=== PATIENT | male | born 1975 | race Caucasian/White ===

== ENCOUNTER 2024-12-02 18:26 | Outpatient (REF) | payer MEDICAID, SELFPAY ==
--- NOTE | ~2024-12-02 | MR_ITS ---
CLINICAL HISTORY: RT BICEP DEFORMITY, R O RUPTURE MR right humerus without contrast Comparison: None Findings: Mild glenohumeral subcortical edema with cystic change, degenerative. Otherwise normal marrow signal. Large proximal humeral osteophytosis, degenerative. There is a small amount of fluid in the subcoracoid bursa. The long head of the biceps tendon is intact. There is increased fluid within the tendon sheath. The short head of the biceps tendon is intact. The distal tendon of the biceps brachii is increased in size and signal with heterogeneity. Its insertion upon radius is not included in the field of view and there is artifact in this region which limits evaluation on the T2 weighted images. There is mild adjacent muscular edema and atrophy. The musculature is otherwise normal in signal and bulk. The tendons are otherwise intact. Unremarkable limited evaluation of the vasculature. Unremarkable nerves. Normal subcutaneous fat. Impression: Partially visualized abnormal distal tendon of the biceps brachii which is increased in size and signal likely indicates partial tear. Mild associated myositis and atrophy. The long and short heads of the biceps tendon are intact. There is increased fluid within the tendon sheath of the long head of the biceps tendon indicating tenosynovitis. This document has been electronically signed by: Aida Hayes MD on 12/05/2024 16:25:20
== END 2024-12-02 18:27 | disposition home or self-care (01) ==
LOC: HO.MRI 18:26
PROVIDERS: PCP Internal Medicine; Visit Provider Internal Medicine
DX: S46.211A Strain of muscle, fascia and tendon of other parts of biceps, right arm, initial encounter (principal)
CPT/HCPCS: 73218

== ENCOUNTER → 2024-12-02 18:40 | Outpatient (BNV) | payer MEDICAID, SELFPAY | PROVIDERS: PCP Internal Medicine; Visit Provider Radiology Diagnostic Radiology | DX: M21.921 Unspecified acquired deformity of right upper arm (principal) | CPT/HCPCS: 73218 ==

== ENCOUNTER 2024-12-23 09:27 | Outpatient (AMB) | payer MEDICAID, SELFPAY ==
--- NOTE | 2024-12-23 09:37 | MHC.OFFVIS ---
Vital Signs 12/23/24 09:39 Height 5 ft 9 in Weight 200 lb BMI 29.5 Intake Visit Reasons: New Patient - Possible Right Bicep Tendon Rupture Intake Note: Tripp Mcbride 49 yr old right hand dominant male presents today with his Berta, for his right bicep tendon rupture. States about 1-2 months ago while lifting his dog, he felt a pop. The following day he woke up and noticed bruising. Denies pain, has no bruising, numbness, tingling or locking of any finger. Allergies No Known Allergies Allergy (Verified 12/23/24 09:40) [facility] Social History (Updated 12/23/24 @ 09:40 by CHARLES Lobato) Current occupational status: employed Current occupation: rt hand / welding Physical Exam Vital Signs: BMI result Body Mass Index 29.5 Assessment & Plan Assessment & Plan (1) Traumatic rupture of right distal biceps tendon: Code(s): S46.211A - Strain of muscle, fascia and tendon of other parts of biceps, right arm, initial encounter Category: Medical Plan History of Present Illness The patient is a 49-year-old male presenting with a biceps tendon rupture. The injury was sustained about one month prior when the patient lifted a heavy dog, resulting in a sudden pop sensation and bruising of the affected area, consistent with a tendon rupture. Initial evaluation and MRI at another facility confirmed a full-thickness tear, though complete MRI assessment by the said facility was inconclusive. Despite the injury, the patient reports no pain and maintains a full range of motion. He notes only occasional fatigue during use of the affected arm. Given the incident occurred one to two months ago, these findings suggest a chronic stage of the injury. Review of Systems - Musculoskeletal: Reports occasional fatigue in the affected arm; Denies pain, swelling, or limitation of range of motion. Systems reviewed and are negative except as per HPI and below Physical Exam - Musculoskeletal- Examination reveals a negative hook test with minor deformity and biceps tendon bulge; slight retraction palpable. Results - Imaging: MRI at referral center showing full-thickness biceps tendon tear with incomplete assessment. Procedure Plan The patient with a biceps tendon rupture, identified one month prior, is not a candidate for surgery due to chronic retraction. As the patient is asymptomatic and physically unrestricted, conservative management including physical therapy is advised to address mild fatigue. Surgical intervention or further imaging will only be reconsidered if new symptoms arise. Close monitoring of the condition and prompt reporting of any changes are emphasized to the patient. Patient was informed and verbally consented to the use of an ambient scribe for clinic note documentation during this visit. Discussion Notes I discussed with the patient the nature of his biceps tendon rupture and the management options available. Given the injury occurred over a month ago, surgery is not feasible due to the chronicity and tendon retraction. The benefits of conservative treatment, including physical therapy, were explained, emphasizing strengthening the area and managing fatigue without invasive procedures. The risks of surgical attempts at this stage were outlined, including the difficulty and potential stiffness post-repair, with reassurance provided given the lack of overt symptoms and functional limitations. We agreed on physical therapy as an effective interim approach, with plans to revisit the necessity for further imaging or surgical consultation if symptoms escalate. Patient Instructions - Follow up with physical therapy as recommended to strengthen the affected area. - Monitor arm for changes in symptoms; report increased pain or functional limitations immediately. - Note fatigue during activities; modify activities as necessary to prevent exacerbation. - Maintain regular activity within current comfort levels. - Contact the office if you have questions or need further assistance. Orders: Orders PT Evaluation and Treatment Today S46.211A - Strain of muscle, fascia and tendon of other parts of biceps, right arm, initial encounter Coding Level of Care Code New Pt Level 3 (39011) Diagnoses Traumatic rupture of right distal biceps tendon S46.211A
[2024-12-23 09:39] VITALS: BMI 29.5
--- OUTSIDE RECORDS SUMMARY | 2024-12-23 09:48 | XMS_ITS | Clinical Summary ---
Author Organization [facility] Address [address] [place] [address] Care Team Providers Care Outpatient Coder Name Role Phone Salvatore Alvarez MD Primary Care Provide r Allergies No known active allergies Medications No known medications Active Problems Problem Noted Date Diagnosed Date Rupture of right distal biceps tendon 11/19/2024 Assessment & Plan (11/19/2024 12:12 PM EDT): Hx and physical exam indicative of this Plan: MRI right arm Ortho referral Pain of left heel 11/19/2024 Assessment & Plan (11/19/2024 12:19 PM EDT): Symptoms and exam indicative of plantar fasciitis Plan: Heel pads, stretching exercises, NSAIDS PRN, Plain films , Podiatry eval Encounters Date Type Department Care Team Description 12/07/2024 Results Follow-Up [facility] [address] [place] [phone] Staci Vernon RN MR Humerus w/o Contrast Right 11/28/2024 Orders Only [facility] [address] [place] [phone] Salvatore Alvarez MD Rupture of right distal biceps tendon, initial encounter (Primary Dx); Pain of left heel 11/22/2024 Telephone [place] [facility] [address] [place] [address] Salvatore Alvarez MD 11/21/2024 Population Health Risk Score [facility] ([facility]) Department [address] [phone] Provider, Population Health Generic 11/19/2024 11:40 AM EDT Office Visit [facility] [address] [place] [address] Salvatore Alvarez MD Rupture of right distal biceps tendon, initial encounter (Primary Dx); Pain of left heel 11/19/2024 Telephone [facility] [address] [place] [phone] Eileen Fajardo, RN Durable Medical Equipment from Last 3 Months Social History Tobacco Use Types Packs/Day Years Used Date Smoking Tobacco: Never Passive Smoke Exposure: Never Smokeless Tobacco: Never Tobacco Cessation:Counseling Given: Not Answered Sex and Gender Information Value Date Recorded Sex Assigned at Male 11/19/2024 10:56 AM EDT Legal Sex Male 3:11 PM EDT Gender Identity Male 11/19/2024 10:56 AM EDT Sexual Orientation Straight 11/19/2024 10 :56 AM EDT Last Filed Vital Signs Vital Sign Reading Time Taken Comments Blood Pressure 134/87 11/19/2024 11:40 AM EDT Pulse 80 11/19/2024 11:40 AM EDT Temperature 36.8 ??C (98.2 ??F) 11/19/2024 11:40 AM E DT Respiratory Rate 20 11/19/2024 11:40 AM EDT Oxygen Saturation 98% 11/19/2024 11:40 AM EDT Inhaled Oxygen Concentration - - Weight 91.4 kg (201 lb 9.6 oz) 11/19/2024 11:40 AM EDT Height 175.3 cm (5' 9 ) 11/19/2024 11:40 AM EDT Body Mass Index 29.77 11/19/2024 11:40 AM EDT Plan of Treatment Upcoming Encounters Date Type Department Care Team (Late st Contact Info) Description 01/31/2025 1:30 PM EDT Office Visit [facility] [address] [place] [phone] Salvatore Alvarez MD [address] [place] [address] Health Maintenance Due Date Last Done Comments CT Colonography 1977 Colonoscopy 1977 Colorectal Cancer Screening 1977 Depression Screening 1977 FIT DNA/Cologuard 1977 FIT 1977 FOBT 1977 HIV Screening 1977 Lipid Panel 1977 SDOH Screening 1977 Sigmoidoscopy 1977 Disability Screening 1977 Alcohol/Substance Use Screening 1989 Family Planning (PISQ) 1992 Hepatitis C Screening 1995 DTaP/Tdap/Td Vaccines (1 - Tdap) 1996 Hepatitis B Vaccines (1 of 3 - 19+ 3-dose series) 1996 COVID-19 Vaccine (1 - 2023-2 5 season) 2024 Influenza Vaccine (#1) 2024 Tobacco Screening 11/19/2025 11/19/2024 Zoster Vaccines (1 of 2) 2027 RSV Patients and Pa tients Aged 60 years or older (1 - 1-dose 75+ series) 2052 HIB Vaccines Aged Out No longer eligi ble based on patient's age to complete this topic HPV Vaccines Aged Out No longer eligi ble based on patient's age to complete this topic Hepatitis A Vaccines Aged Out No long er eligible based on patient's age to complete this topic IPV Vaccines Aged Out No longer eligi ble based on patient's age to complete this topic Meningococcal B Vaccine Aged Out No l onger eligible based on patient's age to complete this topic Meningococcal Vaccine Aged Out No nahed harrison eligible based on patient's age to complete this topic Pneumococcal Vaccine: Pediat rics (0 to 5 Years) and At-Risk Patients (6 to 49) Years) Aged Out No longer elig ible based on patient's age to complete this topic RSV under 20 months Aged Out No longe r eligible based on patient's age to complete this topic Rotavirus Vaccines Aged Out No longer eligible based on patient's age to complete this topic Procedures Procedure Name Priority Date/Time Associated Diagnosis Comments MR HUMERUS WO CONTRAST RIGHT Routine 12/05/2024 4:25 PM EDT from Last 3 Months Results * MR Humerus w/o Contrast Right (12/05/2024 4:25 PM EDT) Anatomical Region Laterality Modality Upper Extremities, Humerus Right Magne tic Resonance 12/05/2024 4:25 PM EDT Narrative 12/05/2024 4:26 PM EDT ? [facility] ?[address] ?[place] [address] ? Magnetic Resonance Report ? Signed ? Patient: Virgie Grullon,Leif ?MR#: ?? [id number] ? : 1975 ?Acct:[id number] ? Age/Sex: 49 / M ?ADM Date: 12/02/24 ? Loc: HO.MRI ? Attending Dr: Salvatore Delatorre MD ? Ordering Physician: Salvatore Delatorre MD ?? Date of Service: 12/02/24 ?? Procedure(s): MR humerus RT wo con ?? Accession Number(s): [id number] ? cc: Salvatore Delatorre MD ? CLINICAL HISTORY: RT BICEP DEFORMITY, R O RUPTURE ? MR right humerus without contrast ? Comparison: None ? Findings: ?? Mild glenohumeral subcortical edema with cystic change, degenerative. ?? Otherwise normal marrow signal. Large proximal humeral osteophytosis, ?? degenerative. ?? There is a small amount of fluid in the subcoracoid bursa. ?? The long head of the biceps tendon is intact. There is increased fluid ?? within the tendon sheath. The short head of the biceps tendon is intact. ?? The distal tendon of the biceps brachii is increased in size and signal ?? with heterogeneity. Its insertion upon radius is not included in the field ?? of view and there is artifact in this region which limits evaluation on ?? the T2 weighted images. There is mild adjacent muscular edema and atrophy. ?? The musculature is otherwise normal in signal and bulk. The tendons are ?? otherwise intact. ?? Unremarkable limited evaluation of the vasculature. Unremarkable nerves. ?? Normal subcutaneous fat. ? Impression: ?? Partially visualized abnormal distal tendon of the biceps brachii which is ?? increased in size and signal likely indicates partial tear. Mild ?? associated myositis and atrophy. The long and short heads of the biceps ?? tendon are intact. There is increased fluid within the tendon sheath of ?? the long head of the biceps tendon indicating tenosynovitis. ? This document has been electronically signed by: Aida Hayes MD ?? on 12/05/2024 16:25:20 ? Dictated By: ?Aida Huggins MD ? Signed By: ?<Electronically signed by Aida Huggins MD in OV> ? 12/05/241625 ? DD/ 24 ? TD/TT: 12/05/241624 ? Drapery Hand: ? Procedure Note Donotuseinterpreter, Image - 12/05/2024 [place] [address] Magnetic Resonance Report Signed Patient: Tripp ArreagaR#: [id number] : 1975Acct:[id number] Age/Sex: 49 / MADM Date: 12/02/24 Loc: HO.MRI Attending Dr: Salvatore Delatorre MD Ordering Physician: Salvatore Delatorre MD Date of Service: 12/02/24 Procedure(s): MR humerus RT wo con Accession Number(s): [id number] cc: Salvatore Delatorre MD CLINICAL HISTORY: RT BICEP DEFORMITY, R O RUPTURE MR right humerus without contrast Comparison: None Findings: Mild glenohumeral subcortical edema with cystic change, degenerative. Otherwise normal marrow signal. Large proximal humeral osteophytosis, degenerative. There is a small amount of fluid in the subcoracoid bursa. The long head of the biceps tendon is intact. There is increased fluid within the tendon sheath. The short head of the biceps tendon is intact. The distal tendon of the biceps brachii is increased in size and signal with heterogeneity. Its insertion upon radius is not included in the field of view and there is artifact in this region which limits evaluation on the T2 weighted images. There is mild adjacent muscular edema and atrophy. The musculature is otherwise normal in signal and bulk. The tendons are otherwise intact. Unremarkable limited evaluation of the vasculature. Unremarkable nerves. Normal subcutaneous fat. Impression: Partially visualized abnormal distal tendon of the biceps brachii which is increased in size and signal likely indicates partial tear. Mild associated myositis and atrophy. The long and short heads of the biceps tendon are intact. There is increased fluid within the tendon sheath of the long head of the biceps tendon indicating tenosynovitis. This document has been electronically signed by: Aida Hayes MD on 12/05/2024 16:25:20 Dictated By: Aida Huggins MD Signed By: <Electronically signed by Aida Huggins MD in OV> 12/05/24 1626 DD/ 162 TD/TT: 12/05/241624 Drapery Hand: Salvatore Hines MD IMG MRI PROCEDURES Fi nal Result from Last 3 Months [facility] [employer] [facility] Care Teams Outpatient Coder Relationship Specialty Start Date End Date Salvatore Alvarez MD [address] [place] [phone] PCP - General Internal Medicine 11/19/24
== END 2024-12-23 10:04 | disposition home or self-care (01) ==
LOC: HO.HOS 09:28
PROVIDERS: PCP Internal Medicine
DX: S46.211A Strain of muscle, fascia and tendon of other parts of biceps, right arm, initial encounter (principal)
CPT/HCPCS: 99203

== ENCOUNTER → 2024-12-23 09:27 | Outpatient (BNVA) | payer MEDICAID, SELFPAY | PROVIDERS: PCP Internal Medicine | DX: S46.211A Strain of muscle, fascia and tendon of other parts of biceps, right arm, initial encounter (principal) | CPT/HCPCS: 99212 ==

== ENCOUNTER → 2025-03-04 09:37 | Outpatient (BNV) | payer MEDICAID, SELFPAY | PROVIDERS: Visit Provider Radiology Diagnostic Radiology | DX: M25.831 Other specified joint disorders, right wrist (principal); S62.632A Displaced fracture of distal phalanx of right middle finger, initial encounter for closed fracture | CPT/HCPCS: 73110; 73130 ==

== ENCOUNTER 2025-03-04 10:12 | Emergency (ER) | payer MEDICAID, SELFPAY ==
--- NOTE | ~2025-03-04 | XR_ITS ---
CLINICAL HISTORY: right hand hit by metal Exam: PA, lateral, oblique, and scaphoid views of the right wrist. Comparison: Right hand radiographs from same time. Findings: Bony alignment is anatomic. No acute fracture. No erosion. Minimal degenerative change of the STT joint. Impression: No fracture. This document has been electronically signed by: Serafin Cooper MD on 03/04/2025 11:44:51
--- NOTE | ~2025-03-04 | XR_ITS ---
CLINICAL HISTORY: right hand struck by metal Exam: AP, lateral, and oblique views of the right hand. Comparison: Right wrist radiographs from same day. Findings: Overall bony alignment is anatomic. Curvilinear ossification seen at the ulnar aspect of the distal phalanx of the long finger. No other areas of concern for fracture identified. [id number] scattered degenerative change, primarily involving the metacarpophalangeal joints. Impression: Curvilinear fracture deformity along the ulnar aspect of the distal phalanx of the long finger. Correlation with the patient's location of injury mechanism of injury suggested. This document has been electronically signed by: Serafin Cooper MD on 03/04/2025 11:43:40
[2025-03-04 10:20] VITALS: BP 137/72; PULSE 85; RESP 18; TEMP 37.2; O2SAT 96; BMI 29.6
--- NOTE | 2025-03-04 14:03 | ED.EXTPRO ---
HPI - Extremity Problem General Chief complaint: Extremity Injury, Upper Stated complaint: swollen middle finger Time Seen by Provider: 03/04/25 13:28 Source: patient and RN notes reviewed Mode of arrival: ambulatory Limitations: no limitations History of Present Illness ED Provider: Naz Duarte PA-C [facility] Narrative: This is a 49-year-old male who presents emergency department with complaints of right finger pain since yesterday. Patient states that he was at work when he is cutting a piece of aluminum metal when suddenly the metal flew off the saw and hit him in his right 3rd finger. He has had pain since. He is right-hand dominant. Denies taking any medications at home to treat his current symptoms. No other complaints or concerns at this time. MD Complaint: extremity pain and extremity swelling Onset (ago): day(s) Pain Consistency: constant Location: right and upper extremity Quality: aching Radiation: none Relieving factors: nothing Exacerbating factors: nothing Associated symptoms: denies other symptoms Related Data Previous Rx's ?Medication ?Instructions ?Recorded ibuprofen 600 mg tablet 600 mg PO Q6H PRN pain #30 tabs 03/04/25 Allergies Allergy/AdvReac Type Severity Reaction Status Date / Time No Known Allergies Allergy Verified 03/04/25 10:24 Review of Systems Review of Systems: Yes all other systems are reviewed and are negative Constitutional: Constitutional: Reports as per [facility] Social History Social History (Updated 12/23/24 @ 09:40 by Vivian Rubin [facility]) Advance Directives: No Advance Directives Information Provided: Yes Current occupational status: employed Current occupation: rt hand / welding Physical Exam Vital Signs: Vital Signs: Last Vital Signs Temp 98.9 F 03/04/25 14:29 Pulse 85 03/04/25 14:29 Resp 18 03/04/25 14:29 BP 137/72 03/04/25 14:29 Pulse Ox 96 03/04/25 14:29 O2 Del Method Room Air 03/04/25 14:29 BMI result Body Mass Index 29.6 Const: General: cooperative, comfortable and no acute distress Orientation/consciousness: patient oriented x3 Limitations: no limitations HEENT: Head: Yes normal to inspection, Yes normocephalic and Yes atraumatic Ears: hearing grossly normal bilaterally General nose exam: Normal external nose present Face and sinus: Yes normal facial exam Mouth: Normal oral and palatal mucosa present, oropharynx normal and moist mucous membranes Throat: Yes posterior oropharynx normal Eyes: General: appearance normal, both eyes and all related structures Eyelids: Yes eyelids normal Conjunctivae: conjunctivae normal Sclerae: sclerae normal Pupils: Equal, round and reactive pupils present EOM: EOMs intact bilaterally Neck: Neck: Yes normal visual inspection, Yes full ROM and Yes no lymphadenopathy Lymphatic: no lymphadenopathy noted Chest: Chest palpation & inspection: normal inspection of the chest Resp: Effort & Inspection: normal respiratory effort and able to speak in complete sentences Auscultation: clear to auscultation bilaterally, no crackles, no rales, no rhonchi and no wheezes Cardio: Rate: regular rate Rhythm: regular rhythm Heart sounds: S1 normal heart sound present and S2 normal heart sound present GI: Inspection: Yes normal to inspection Skin: General skin exam: no rashes or lesions noted Trauma: no lacerations or abrasions Wounds: no wounds Neuro: General: patient oriented x3 and moves all extremities Cranial nerves: Yes Equal, round and reactive pupils present Extrem: Other: Right digit with ecchymosis throughout the entire digit, distal sensation intact. capillary refill less than 2 seconds. Able to flex and extend at the PIP and DIP. TTP overlying the distal phalanx, no open wounds/laceration General: Yes normal to inspection Right upper extremity: normal to inspection Left upper extremity: normal to inspection Right lower extremity: normal to inspection Left lower extremity: normal to inspection Medical Decision Making Medical Decision Making MDM Narrative: This is a 49-year-old male who presents emergency department with complaints of right finger pain since yesterday. On arrival, vital signs WNL. Xrays revealing a curvilinear fx deformity along the ulnar aspect of the distal phalanx 3rd digit. Full ROM, no open wounds or lacerations. Distal sensation circulation intact. Physical exam findings consistent with x-ray findings. Discussed findings with pt. Placed in finger splint, given referral to orthopedist. Given strict return precautions. He understands and agrees with plan. Patient stable for discharge Differential Diagnosis Differential Diagnoses: The differential diagnosis associated with the presentation includes Fracture, contusion, sprain, strain, dislocation Radiology Impression Discussion of test interpretation with radiology: I have reviewed the radiologist's reading. Radiologist Impression: Exam: AP, lateral, and oblique views of the right hand. Comparison: Right wrist radiographs from same day. Findings: Overall bony alignment is anatomic. Curvilinear ossification seen at the ulnar aspect of the distal phalanx of the long finger. No other areas of concern for fracture identified. [id number] scattered degenerative change, primarily involving the metacarpophalangeal joints. Impression: Curvilinear fracture deformity along the ulnar aspect of the distal phalanx of the long finger. Correlation with the patient's location of injury mechanism of injury suggested. This document has been electronically signed by: Serafin Cooper MD on 03/04/2025 11:43:40 Dictated By: Serafin Cooper MD Findings: Bony alignment is anatomic. No acute fracture. No erosion. Minimal degenerative change of the STT joint. Impression: No fracture. This document has been electronically signed by: Serafin Cooper MD on 03/04/2025 11:44:51 Dictated By: Serafin Cooper MD Discharge Plan Discharge Clinical Impression: Finger fracture, right Patient Disposition: Home, Self-Care Instructions: Finger Fracture (ED) Additional Instructions: You were seen in the ER due to finger pain. You do have a fracture noted along the end of your third finger. We placed your finger into a finger splint. Please wear until you follow up with the orthopedics. Call on Thursday to make an appointment. Please rest, ice, and elevate your hand and finger. Take ibuprofen as needed for pain and inflammation. If any new or worsening symptoms occur including but not limited to worsening pain, decreased sensation in your finger, please seek emergent care. Prescriptions: New ibuprofen 600 mg tablet 600 mg PO Q6H PRN (Reason: pain) Qty: 30 0RF [place] [facility] [place] [facility] [place]Provider Group] Referral Note: Distal phalanx fracture Interventions: ED Discharge Assessment Last Done: 03/04/25 14:29 Discharge Date/Time: 03/04/25 14:29 Print Language: Martiniquais
[2025-03-04 14:29] VITALS: BP 137/72; PULSE 85; RESP 18; TEMP 37.2; O2SAT 96
== END 2025-03-04 14:29 | disposition home or self-care (01) ==
PROVIDERS: Emergency Provider Emergency Medicine Emergency Medical Services
DX: S62.632A Displaced fracture of distal phalanx of right middle finger, initial encounter for closed fracture (principal); W20.8XXA Other cause of strike by thrown, projected or falling object, initial encounter; M79.644 Pain in right finger(s); Y93.89 Activity, other specified; Y92.59 Other trade areas as the place of occurrence of the external cause; Y99.0 Civilian activity done for income or pay
CPT/HCPCS: 29130; 73110; 73130; 99282; 99283

== ENCOUNTER 2025-03-14 13:33 | Outpatient (REF) | payer MEDICAID, SELFPAY ==
--- NOTE | ~2025-03-14 | XR_ITS ---
EXAMINATION: XR HAND, RIGHT CLINICAL INFORMATION: M79.641 - Pain in right hand COMPARISON: March 04, 2025 TECHNIQUE: PA, lateral, and oblique views of the right hand. FINDINGS: There is a well-corticated cortical disruption in the ulnar aspect of the tip distal phalanx third digit. The metacarpal bones are intact. The carpal bones are intact with normal alignment. Distal radius and ulna are intact. The phalanges of the first second fourth and fifth digits are intact with normal alignment. The proximal and middle phalanges of the third digit are intact. XR/XR hand RT min 3V IMPRESSION: No healing fracture , tip distal phalanx, third digit. No gross change. Electronically signed by: Everton Allison MD 03/14/2025 02:06 PM EDT
--- OUTSIDE RECORDS SUMMARY | 2025-03-14 14:48 | XMS_ITS | Clinical Summary ---
Author Organization [employer] Address [address] [place] [address] Care Team Providers Care Press Bucker Name Role Phone Salvatore Alvarez MD Primary [...] Encounters Date Type Department Care Team Description 01/31/[address] [facility] [address], [place] [phone] Salvatore Alvarez MD No Show (Pt no show to new patient appointment with at 1:30 letter will be sent out. ) 01/30/[address] [facility] [address], [place] [phone] Salvatore Alvarez MD Chart Prep 01/24/2025 Patient Outreach [facility] [address], [place] [phone] Salvatore Alvarez MD Care Coordination ([facility] outreach for SDOH PT-1 and food needs-LVM ) 01/23/2025 Patient Outreach [facility] [address] [place], [place] [phone] Salvatore Alvarez MD Pre-visit Planning (SDOH positive, Tobacco screening negative.) from Last 3 Months Social History Tobacco Use Types Packs/Day Years Used Date Smoking Tobacco: Never Passive Smoke Exposure: Never Smokeless Tobacco: Never Tobacco Cessation:Counseling Given: Not Answered Housing Stability Answer Date Recorded What is your housing situation today? I have zoe luna 01/23/[address] you li ve. Do you have problems with any of the following? None of the above 01/23/2025 Food Insecurity Answer Date Recorded Within the past 12 months, y ou worried that your food would run out before you got money to buy more: Often true 01/23/2025 Within the past 12 months,th e food you bought just didn't last and you didn't have enough money to get more: Often true Transportation Answer Date Recorded In the past 12 months, has l ack of transportation kept you from medical appts, meetings, work or from getting things needed for daily living? No 01/23/2025 Utilities Answer Date Recorded In the past 12 months, has t he electric, gas, oil or water company threatened to shut off services in your home? No 01/23/2025 Internet Access Answer Date Recorded Internet Access Q1 Yes 01/23/2025 Internet Access Q2 Not on file 01/23/2025 Sex and Gender Information Value Date Recorded Sex Assigned at Male 11/19/2024 10:56 AM EDT Legal Sex Male 3:11 PM EDT Gender Identity Male 11/19/2024 10:56 AM EDT Sexual Orientation Straight 11/19/2024 10 :56 AM EDT Last Filed Vital Signs Vital Sign Reading Time Taken Comments Blood Pressure 134/87 11/19/2024 11:40 AM EDT Pulse 80 11/19/2024 11:40 AM EDT Temperature 36.8 C (98.2 F) 11/19/2024 11:40 AM EDT Respiratory Rate 20 11/19/2024 11:40 AM EDT Oxygen Saturation 98% 11/19/2024 11:40 AM EDT Inhaled Oxygen Concentration - - Weight 91.4 kg (201 lb 9.6 oz) 11/19/2024 11:40 AM EDT Height 175.3 cm (5' 9 ) 11/19/2024 11:40 AM EDT Body Mass Index 29.77 11/19/2024 11:40 AM EDT Plan of Treatment Health Maintenance Due Date Last Done Comments CT Colonography 1977 Colonoscopy 1977 Colorectal Cancer Screening 1977 Depression Screening 1977 FIT DNA/Cologuard 1977 FIT 1977 FOBT 1977 HIV Screening 1977 Lipid Panel 1977 Sigmoidoscopy 1977 Disability Screening 1977 Alcohol/Substance Use Screening 1989 Family Planning (PISQ) 1992 Hepatitis C Screening 1995 DTaP/Tdap/Td Vaccines (1 - Tdap) 1996 Hepatitis B Vaccines (1 of 3 - 19+ 3-dose series) 1996 COVID-19 Vaccine ( - 2023-2 5 season) 2024 Influenza Vaccine (#1) 2025 Tobacco Screening 11/19/2025 11/19/2024 SDOH Screening 01/23/2026 01/23/2025 Zoster Vaccines (1 of 2) 2027 RSV [...] Years) and At-Risk Patients (6 to 49) Years Aged Out No longer eligi ble based on patient's age to complete this topic RSV under 20 months Aged Out No longe r eligible based on patient's age to complete this topic Rotavirus Vaccines Aged Out No longer eligible based on patient's age to complete this topic Insurance [facility] C3 Care Teams Press Bucker Relationship Specialty Start Date End Date Salvatore Alvarez MD [address] [place] [id number] PCP - General Internal Medicine 11/19/24
== END 2025-03-14 13:34 | disposition home or self-care (01) ==
LOC: HO.HOSX 13:33
DX: S62.632A Displaced fracture of distal phalanx of right middle finger, initial encounter for closed fracture (principal); W31.2XXA Contact with powered woodworking and forming machines, initial encounter; Y92.69 Other specified industrial and construction area as the place of occurrence of the external cause; M79.641 Pain in right hand; Y99.0 Civilian activity done for income or pay
CPT/HCPCS: 73130; 99212

== ENCOUNTER 2025-03-14 13:48 | Outpatient (AMB) | payer MEDICAID, SELFPAY ==
--- NOTE | 2025-03-14 13:58 | A.OFFVIS_ITS ---
Vital Signs 03/14/25 13:59 Height 5 ft 9 in Weight 200 lb BMI 29.5 Intake Visit Reasons: FC-Rt MF Fx, DOI: 03/03/25 Intake Note: Tripp is a 49 year old right hand dominant male who presents today for evaluation of a right middle finger fracture, DOI: 03/03/25. Patient presented to [facility] on 03/04/25 reporting he was at work cutting a piece of aluminum when suddenly the metal flew off the saw and hit him in his right middle finger. At the ED, he was placed on a finger splint to be worn until seen by us. He was advised to rest, ice, and elevate his right hand. Patient was further advised to take ibuprofen as needed. Today, patient reports he has been splinting his finger as advised. Patient complains of pain all around the DIP of the right middle finger associated with numbness and tingling. He is taking Tylenol/Ibuprofen PRN without relief. Denies previous injuries or surgeries to the hands. Allergies No Known Allergies Allergy (Verified 03/14/25 13:59) HPI HPI FC-Rt MF Fx, DOI: 03/03/25: Details: Tripp is a 49 year old right hand dominant male who presents today for evaluation of a right middle finger fracture, DOI: 03/03/25. Patient presented to [facility] on 03/04/25 reporting he was at work cutting a piece of aluminum when suddenly the metal flew off the saw and hit him in his right middle finger. At the ED, he was placed on a finger splint to be worn until seen by us. He was advised to rest, ice, and elevate his right hand. Patient was further advised to take ibuprofen as needed. Today, patient reports he has been splinting his finger as advised. Patient complains of pain all around the DIP of the right middle finger associa abner with numbness and tingling. He is taking Tylenol/Ibuprofen PRN without relief. Denies previous injuries or surgeries to the hands. [facility] Social History (Updated 03/14/25 @ 14:07 by JORGE A Gordon) Patient Tobacco Use Status: Never used Tobacco Current occupational status: employed Current occupation: rt hand / welding Review of Systems Const All systems reviewed & are unremarkable except as noted in HPI and below Physical Exam Vital Signs: BMI result Body Mass Index 29.5 Extrem Other: Patient is alert, oriented, and in no acute distress. Neuro: Normal sensation of the tips of all digits of the right hand at this time Vascular: Cap refill brisk Pain: Mild tenderness to palpation of the right middle finger distal phalanx Minor discomfort with range of motion of the right middle finger ROM: Patient is able to make a closed fist and extend all digits of the right hand and volar Skin: No lacerations or abrasions. General: Edema noted of the distal aspect of the right middle finger No ecchymosis, erythema, or evidence of infection. Psych: Appears grossly normal Affect normal Attitude cooperative Office Procedures AMB Fracture Care Fracture Billing Code: Fracture Billing Code Results Reviewed Results Reviewed: X-rays obtained in the office today and independently reviewed by me, Joseph Vargas PA-C, demonstrate minimally displaced distal tuft fracture of the right hand. Assessment & Plan Assessment & Plan (1) Closed fracture of tuft of distal phalanx of right middle finger: Code(s): S62.632A - Displaced fracture of distal phalanx of right middle finger, initial encounter for closed fracture Category: Medical Plan 1. Distal tuft fracture of the right middle finger Date of injury 03/03/2025 Patient is educated about this condition Patient is educated about the typical recovery course No acute surgical intervention is indicated for this fracture Patient is provided with a fingertips splint to wear with daytime activities and for comfort Patient is advised he should remove the splint occasionally to work on range of motion of the right hand 2 lb weight limit in the right hand Patient understands this and is amenable to this plan Follow-up in 4 weeks with repeat x-rays for reassessment, sooner with any acute concerns Orders: Orders XR hand RT min 3V 03/14/25 M79.641 - Pain in right hand Coding Level of Care Code Est Pt Level 3 (21710) Diagnoses Closed fracture of tuft of distal phalanx of right middle finger S62.632A CPT Codes Fracture Care - Fracture Billing Code: Fracture Billing Code ([id number])
[2025-03-14 13:59] VITALS: BMI 29.5
== END 2025-03-14 14:49 | disposition home or self-care (01) ==
LOC: HO.HOS 13:49
DX: S62.632A Displaced fracture of distal phalanx of right middle finger, initial encounter for closed fracture (principal)
CPT/HCPCS: 99213

== ENCOUNTER → 2025-03-14 13:50 | Outpatient (BNV) | payer MEDICAID, SELFPAY | PROVIDERS: Visit Provider Radiology Diagnostic Radiology | DX: S62.634G Displaced fracture of distal phalanx of right ring finger, subsequent encounter for fracture with delayed healing (principal) | CPT/HCPCS: 73130 ==

== ENCOUNTER 2025-04-05 08:21 | Outpatient (REF) | payer MEDICAID, SELFPAY ==
--- OUTSIDE RECORDS SUMMARY | 2025-04-05 09:32 | XMS_ITS | Clinical Summary ---
Author Organization [employer] Address [address] [place] [address] Care Team Providers Care Lithographic Photographer Name Role Phone Salvatore Alvarez MD Primary [...] Type Department Care Team Description 01/31/2025 Telephone [facility] [address], [place] [phone] Salvatore Alvarez MD No Show (Pt no show to new patient appointment with at 1:30 letter will be sent out. ) 01/30/2025 Telephone [facility] [address] [place], [place] [phone] Salvatore Alvarez MD Chart Prep 01/24/2025 Patient Outreach [facility] [address] [place], [place] [phone] Salvatore Alvarez MD Care Coordination ([facility] outreach for SDOH PT-1 and food needs-LVM ) 01/23/2025 Patient Outreach [facility] [address] [place], [place] [phone] Salvatore Alvarez MD Pre-visit Planning (SDOH positive, [...] 1977 Colonoscopy 1977 Colorectal Cancer Screening 1977 Dental Oral Exam 1977 Dental Prophylaxis 1977 Dental X-Ray: Bitewings 1977 Dental X-Ray: Full Mouth 1977 Depression Screening 1977 FIT DNA/Cologuard 1977 FIT 1977 FOBT 1977 HIV Screening 1977 Lipid Panel 1977 Sigmoidoscopy 1977 Disability Screening 1977 Alcohol/Substance Use Screening 1989 Family Planning (PISQ) 1992 Hepatitis C Screening 1995 DTaP/Tdap/Td Vaccines (1 - Tdap) 1996 Hepatitis B Vaccines (1 of 3 - 19+ 3-dose series) 1996 COVID-19 Vaccine (1 - 2023-2 5 season) 2025 Influenza Vaccine (#1) 2025 Tobacco Screening 11/19/2025 [...] patient's age to complete this topic Insurance [place] C[employer] [facility] [employer] STAND ADULT Care Teams Lithographic Photographer Relationship Specialty Start Date End Date Salvatore Alvarez MD [address] [place] [id number] PCP - General Internal Medicine 11/19/24
== END 2025-04-05 08:22 | disposition home or self-care (01) ==
LOC: HO.HOSX 08:21
DX: Z13.89 Encounter for screening for other disorder (principal)